=== PATIENT | female | born 2005 | race Caucasian/White ===

== ENCOUNTER 2024-02-26 21:26 | Emergency (ER) | payer BC, SELFPAY ==
[2024-02-26 21:30] VITALS: BP 120/77; PULSE 81; RESP 14; TEMP 36.6; BMI 19.3
--- NOTE | 2024-02-26 21:35 | ECG_ITS ---
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 Measurements Intervals [place] Rate: 81 P: 63 IA: 126 QRS: 69 QRSD: 72 T: 40 QT: 364 QTc: 425 Interpretive Statements SINUS RHYTHM WITH SINUS ARRHYTHMIA MODERATE ST DEPRESSION [0.05+ mV ST DEPRESSION] No previous ECG available for comparison Electronically Signed On 02-27-2024 9:04:12 CDT by Brant Ortiz M.D. [id number]
--- NOTE | 2024-02-26 21:35 | XRR_ITS ---
PROCEDURE INFORMATION: Exam: XR Chest Exam date and time: 02/26/2024 9:46 PM Age: 18 years old Clinical indication: Pain; Shortness of breath; Chest pressure; Additional info: Chest pain TECHNIQUE: Imaging protocol: Radiologic exam of the chest. Views: 1 view. COMPARISON: No relevant prior studies available. FINDINGS: Lungs: No focal lung consolidation. Pleural spaces: No pleural effusion. No pneumothorax. Heart/Mediastinum: No cardiomegaly. Bones/joints: No acute bony abnormality. XR/XR chest 1V portable [id number] IMPRESSION: No focal lung consolidation.
[2024-02-26 21:39] VITALS: O2SAT 98
[2024-02-26 21:55] LABS: Basophils % 0.4 %; Eosinophils # 0.2 10^3/uL (0.0-0.8); Eosinophils % 3.2 %; Hematocrit 40.4 % (36-47); Lymphocytes # 2.2 10^3/uL (1.5-6.5); Lymphocytes % 32.7 %; Mean Corpuscular HGB Conc 33.4 g/dL (30-55); Mean Corpuscular Hemoglobin 30.8 pg (27-33); Mean Platelet Volume 10.3 fL (7.4-10.4); Monocytes # 0.7 10^3/uL (0.2-0.9); Monocytes % 9.6 %; Neutrophils # 3.65 10^3/uL (1.8-8.0); Neutrophils % 53.8 %; Nucleated Red Blood Cells % 0 %; Platelet Count 212 10^3/cmm (157-399); Red Blood Count 4.39 10^6/uL (3.85-5.65); Red Cell Distribution Width 11.7 % (12.1-15.1); White Blood Count 6.79 10^3/uL (4.5-13.0)
--- NOTE | 2024-02-26 22:10 | ED_ITS ---
HPI - Chest Pain 2 General: Chief Complaint: Chest Pain Stated Complaint: chest pain tightness sob Time Seen by Provider: 02/26/24 21:28 History of Present Illness: Patient presents to the ER with complaints of chest tightness and heart racing. Patient states yesterday when she was lying in her bed her heart felt like is racing and she checked and is 140 beats a minute and then later on throughout the day she just had this tightness in her middle chest. It never did race anymore but it did feel like he was just pounding at times. She did have some mild shortness of breath during these times and she did notice that this is worse when she is laying down. She has never had anything like this before. Patient is on [place] Thyroid for replacement. Patient has no cardiac history. Review of Systems 2 General: Reports: 10 or more systems reviewed and unremarkable except in HPI and below Physical Exam 2 Const: COMMON NORMALS: no acute distress, average body habitus, patient oriented x3, no limitations, healthy appearing, alert and well nourished HENMT: COMMON NORMALS: normocephalic, atraumatic, hearing grossly normal bilaterally, external ears normal, Normal external nose present and moist oral mucous membranes HEAD & SCALP: normocephalic and atraumatic NOSE: Normal external nose present EXTERNAL EAR: Yes external ears normal Neck/C-Spine: COMMON NORMALS: no JVD Chest: COMMONS NORMALS: normal inspection of the chest and normal palpation of entire chest wall Resp: COMMON NORMALS: normal respiratory effort, No retractions, No use of accessory muscles and clear to auscultation bilaterally AUSCULTATION: clear to auscultation bilaterally Cardio: COMMON NORMALS: no JVD, regular rate, regular rhythm, S1 normal heart sound present, S2 normal heart sound present, No gallops present (Cardio), No clicks present (Cardio), No murmurs present (Cardio) and No rub (Cardio) R ATE: regular rate RHYTHM: regular rhythm HEART SOUNDS: S1 normal heart sound present and S2 normal heart sound present GI: COMMON NORMALS: Normal to inspection, nondistended, normoactive bowel sounds present, Soft to palpation, non-tender, No hepatosplenomegaly present and no masses PALPATION: Yes Soft to palpation and Yes No hepatosplenomegaly present Neuro: COMMON NORMALS: patient oriented x3 SENSORIUM/ORIENTATION: Yes alert Course 2 Vital Signs: Vital signs: Vital Signs Temperature 97.8 F 02/26/24 21:30 Pulse Rate 69 02/27/24 00:00 Respiratory Rate 15 02/27/24 00:00 Blood Pressure 103/63 02/27/24 00:00 Pulse Oximetry 97 02/27/24 00:00 Oxygen Delivery Me thod Room Air 02/27/24 00:00 MDM - Chest Pain Medical Decision Making Patient was worked up in a standard cardiac fashion with physical exam and serial cardiac enzymes, EKGs, chest x-ray, all of which was essentially benign. Patient will be discharged home and should follow-up with her PCP for further evaluation and treatment which may include Holter monitor. Differential Diagnosis Unlikely acute massive pulmonary embolism, acute respiratory failure, acute myocardial infarction, cardiac arrest or sudden cardiac Medical Records I reviewed the patient's medical records. Lab Data I reviewed the patient's lab results. 02/26/24 21:51 02/26/24 21:51 Radiology Impressions Chest X-Ray 02/26/24 21:35 IMPRESSION: No focal lung consolidation. Laboratory Results WBC 6.79 10^3/uL (4.5-13.0) 02/26/24 21:51 RBC 4.39 10^6/uL (3.85-5.65) 02/26/24 21:51 Hgb 13.50 g/dL (12.4-14.8) 02/26/24 21:51 Hct 40.4 % (36-47) 02/26/24 21:51 MCV 92.0 fl (85-98) 02/26/24 21:51 MCH 30.8 pg (27-33) 02/26/24 21:51 MCHC 33.4 g/dL (30-55) 02/26/24 21:51 RDW 11.7 % (12.1-15.1) L 02/26/24 21:51 Plt Count 212 10^3/cmm (157-399) 02/26/24 21:51 MPV 10.3 fL (7.4-10.4) 02/26/24 21:51 Neut % (Auto) 53.8 % 02/26/24 21:51 Lymph % (Auto) 32.7 % 02/26/24 21:51 Moody % (Auto) 9.6 % 02/26/24 21:51 Eos % (Auto) 3.2 % 02/26/24 21:51 Baso % (Auto) 0.4 % 02/26/24 21:51 Neut # (Auto) 3.65 10^3/uL (1.8-8.0) 02/26/24 21:51 Lymph # (Auto) 2.2 10^3/uL (1.5-6.5) 02/26/24 21:51 Moody # (Auto) 0.7 10^3/uL (0.2-0.9) 02/26/24 21:51 Eos # (Auto) 0.2 10^3/uL (0.0-0.8) 02/26/24 21:51 Baso # (Auto) 0.0 10^3/uL (0.0-0.1) 02/26/24 21:51 Nucleated RBC % (auto) 0 % 02/26/24 21:51 Nucleated RBCs # 0.0 /100WBC 02/26/24 21:51 Sodium 141 mmol/L (136-145) 02/26/24 21:51 Potassium 4.1 mmol/L (3.5-5.1) 02/26/24 21:51 Chloride 107 mmol/L (98-107) 02/26/24 21:51 Carbon Dioxide 21 mmol/L (22-29) L 02/26/24 21:51 Anion Gap 17.1 (5-19) 02/26/24 21:51 BUN 13 mg/dL (6-20) 02/26/24 21:51 Creatinine 0.7 mg/dL (0.5-0.9) 02/26/24 21:51 GFR Calculation 106.7 mL/min (90-130) 02/26/24 21:51 Glucose 109 mg/dL (65-115) 02/26/24 21:51 Calculated Osmolality 293 mOsm/kg (285-295) 02/26/24 21:51 Calcium 9.3 mg/dL (8.5-10.5) 02/26/24 21:51 Total Bilirubin 0.3 mg/dL (0.15-1.2) 02/26/24 21:51 AST 13 U/L (0-32) 02/26/24 21:51 ALT 10 U/L (0-33) 02/26/24 21:51 Alkaline Phosphatase 70 U/L (35-105) 02/26/24 21:51 Troponin T Baseline < 6 ng/L (0-10) 02/26/24 21:51 Troponin T 120 Minute 6.00 ng/L (0-10) 02/26/24 23:28 Delta Troponin T 0.90042 ABS# (0-10) 02/26/24 23:28 Total Protein 6.7 g/dL (6.6-8.7) 02/26/24 21:51 Albumin 4.5 g/dL (3.5-5.2) 02/26/24 21:51 Globulin 2.2 g/dL (1.3-4.6) 02/26/24 21:51 TSH 3.64 uIU/mL (0.27-4.20) 02/26/24 21:51 All radiology interpretation(s) finalized by discharge Discharge Plan Discharge Patient Disposition: Home Clinical Impression: Atypical chest pain, Paroxysmal tachycardia Condition: Stable Discharge Orders: Discharge ED (Routine); Ordered 02/27/24 Ordered By: Dvaid Chang Patient Instructions: Tachycardia (ED), Chest Pain (DC) Activity Restrictions/Additional Instructions: Your evaluation in ER that included physical exam, lab work and EKG and x-ray did not reveal any acute causes of your chest pain or tachycardia. Please follow-up with your family practice physician for further evaluation and testing. This further testing may include a Holter monitor. If this returns or worsens please feel free to return to the ER. Coding Level of Care Code ED [employer] for Irma Malik
[2024-02-26 22:15] LABS: Troponin(5th) Baseline < 6 ng/L (0-10)
[2024-02-26 22:18] VITALS: BP 120/77; PULSE 82; RESP 16; O2SAT 96
[2024-02-26 22:25] LABS: Alanine Aminotransferase 10 U/L (0-33); Albumin Level 4.5 g/dL (3.5-5.2); Alkaline Phosphatase 70 U/L (35-105); Anion Gap 17.1 (5-19); Aspartate Amino Transferase 13 U/L (0-32); Blood Urea Nitrogen 13 mg/dL (6-20); Calcium 9.3 mg/dL (8.5-10.5); Carbon Dioxide 21 mmol/L (22-29); Chloride 107 mmol/L (98-107); Creatinine Clr Calc Pharmacy 99.7584; Globulin 2.2 g/dL (1.3-4.6); Glomerular Filtration Rate 106.7 mL/min (90-130); Glucose 109 mg/dL (65-115); Osmolality Calculated 293 mOsm/kg (285-295); Potassium 4.1 mmol/L (3.5-5.1); Sodium 141 mmol/L (136-145); Thyroid Stimulating Hormone 3.64 uIU/mL (0.27-4.20); Total Bilirubin 0.3 mg/dL (0.15-1.2); Total Protein 6.7 g/dL (6.6-8.7)
[2024-02-26 23:30] VITALS: BP 106/67; PULSE 72; RESP 18; O2SAT 99
[2024-02-26 23:53] LABS: Troponin 5 2HR Delta 0.00001 ABS# (0-10)
[2024-02-27] VITALS: BP 103/63; PULSE 69; RESP 15; O2SAT 97
== END 2024-02-27 00:23 | disposition home or self-care (01) ==
PROVIDERS: Emergency Provider Emergency Medicine
DX: R07.89 Other chest pain (principal); I47.9 Paroxysmal tachycardia, unspecified
CPT/HCPCS: 36415; 71045; 80053; 84443; 84484; 85025; 93005; 99285